=== PATIENT | male | born 1960 | race Caucasian/White ===

== ENCOUNTER → 2016-10-31 | Outpatient (CLI) | payer OTHER ==
--- NOTE | 2016-10-31 13:09 | DI ---
XR SHOULDER MIN 2VW,10/31/2016 11:26 AM: Clinical History: Left shoulder pain. Previous Exam: July 04, 2015 Findings: 4 views of the left shoulder are obtained, and demonstrate new postsurgical changes with metallic sut ure anchors seen within the greater tubercle. There is also a well-circumscribed lucency projecting o cl[place] the humeral head on one view. The adjacent left lung and chest wall are unremarkable. There are what appear to be some postsurgical changes of the left distal clavicle as well however, th is is not well evaluated due to non-visualization of the acromioclavicular joint on the prior exam. The adjacent left lung and chest wall are unremarkable. Impression: Postsurgical changes of the left proximal humerus otherwise unremarkable.
--- NOTE | 2016-10-31 13:11 | DI ---
XR SHOULDER MIN 2VW,10/31/2016 11:26 AM: Clinical History: Acute right shoulder pain Previous Exam: None at this facility. Findings: 4 views of the right shoulder are obtained, and demonstrate degenerative changes of the right acromio clavicular joint which are mild in degree. The adjacent right lung and chest wall are unremarkable. Surrounding soft tissues are also unremarkable. Impression: Mild degenerative changes of the right acromioclavicular joint otherwise unremarkable.
== END ==
LOC: ORTHO 11:42
PROVIDERS: ATTEND Orthopaedic Surgery
DX: M25.511 Pain in right shoulder (principal); M25.512 Pain in left shoulder; S51.012A Laceration without foreign body of left elbow, initial encounter; S20.222A Contusion of left back wall of thorax, initial encounter; F17.210 Nicotine dependence, cigarettes, uncomplicated; W00.2XXA Other fall from one level to another due to ice and snow, initial encounter; Y93.89 Activity, other specified; Y92.89 Other specified places as the place of occurrence of the external cause; Y99.0 Civilian activity done for income or pay
CPT/HCPCS: 73030

== ENCOUNTER → 2016-11-13 | Outpatient (CLI) | payer OTHER ==
--- NOTE | 2016-11-13 21:52 | DI ---
MRI RIGHT SHOULDER SCAN, 11/13/2016 9:54 AM: Clinical History: Right shoulder pain. Previous Exam: None at this facility. Technique: Axial, coronal, and sagittal fat saturated PD; axial gradient FE; coronal fat saturatedT2 weighted; sagittal T2 weighted. There is no soft tissue edema or joint effusion. Subchondral cystic changes are present in the literacy tutor olateral and superior aspect of the humeral head at the attachment of the infraspinatus tendon as wel l as near the greater tuberosity. Fluid is present in the subacromion and subdeltoid bursae. There is mild arthrosis of the AC joint and there is a type II acromion. There is a small articular surface p artial-thickness tear in the anterior aspect of the supraspinatus tendon near the attachment to the h umeral head. It measures 5 x 12 mm in transverse and AP dimensions. The remainder of the tendon exhib its severe tendinosis with marked thickening and intermediate signal intensity. Severe tendinosis is also present in the infraspinatus tendon and the subscapularis tendon and the tendon of the long head of the biceps muscle in the rotator interval. Fluid is present in the extra-articular portion of the tendon sheath of the long head of the biceps muscle indicating tenosynovitis. There is a type II SLA P tear that extends posteriorly almost to the equator as well as a small component extending anterior ly to the anterosuperior quadrant. The articular surfaces of the glenohumeral joint are intact. No mu scle atrophy is present. Readin. There is an articular surface partial thickness tear in the distal portion of the supraspinatus t endon anteriorly and this measures 5 x 12 mm in transverse and AP dimensions. The remaining portions of the supraspinatus tendon, the infraspinatus tendon, the subscapularis tendon, and the tendon of th e long head of the biceps muscle in the rotator interval exhibit severe tendinosis. There is tenosyno vitis involving the extra-articular portion of the biceps tendon. There is a type II SLAP tear that e xtends anteriorly into the anterosuperior quadrant and posteriorly almost to the equator. 2. Mild arthrosis is present in the AC joint and there is a type II acromion. The articular surfaces of the glenohumeral joint are intact.
== END ==
LOC: MRI 09:49
PROVIDERS: ATTEND Orthopaedic Surgery
DX: M25.511 Pain in right shoulder (principal); M75.101 Unspecified rotator cuff tear or rupture of right shoulder, not specified as traumatic; M65.811 Other synovitis and tenosynovitis, right shoulder; S43.431A Superior glenoid labrum lesion of right shoulder, initial encounter; M19.011 Primary osteoarthritis, right shoulder
CPT/HCPCS: 73221

== ENCOUNTER → 2016-12-02 | Outpatient (CLI) | payer OTHER ==
[2016-12-02 12:31] LABS: BLOOD UREA NITROGEN 18 mg/dL (7-22); CALCIUM 9.5 mg/dL (8.7-10.7); CHLORIDE 108 meq/L (98-112); CREATININE 0.8 mg/dL (0.70-1.50); EST GLOMERULAR FILTRATION > 60 (>60 ml/min/1.73m(2)); GLUCOSE 104 mg/dL (78-110); SODIUM 141 meq/L (135-145)
== END ==
LOC: EKG 11:50
PROVIDERS: ATTEND Orthopaedic Surgery
DX: Z01.812 Encounter for preprocedural laboratory examination (principal); M75.121 Complete rotator cuff tear or rupture of right shoulder, not specified as traumatic
CPT/HCPCS: 36415; 80048

== ENCOUNTER 2016-12-09 17:45 | Inpatient (IN) | payer SELFPAY ==
[2016-12-09] MEDS ORDERED: Sodium Chloride 0.9% 1,000 ML PRIMARY IV ONE (17:55)
[2016-12-09] MEDS ORDERED: MORPHINE SULFATE 4 MG/1 ML IVP ONE (17:55)
[2016-12-09] MEDS ORDERED: KETOROLAC 30 MG/1 ML VIAL IVP ONE (17:59)
--- NOTE | 2016-12-09 18:02 | PDOC ---
Abdomen/Flank HPI - General Chief Complaint: Abdomen Pain Stated Complaint: abd pain Date Seen by Provider: 12/09/16 Time Seen by Provider: 17:57 Source: POSITIVE: Patient Exam Limitations: POSITIVE: No limitations Nurse's Notes Reviewed & Considered: Yes - History of Present Illness Initial Comments: Patient comes in today with chief complaint of abdominal and scrotal pain. Patient was initially seen at the medical office building with abdominal pain. He was sent to the emergency room because of the lateness of the day and the need for further workup. Initial labs showed has no elevated white count to 16.22 hematocrit is 41.4 there are 1.34% monocytes present. Basic metabolic panel shows an CO2 of 21 normal creatinine. Urine is pending. Patient states his symptoms as scrotal pain and abdominal pain began on Thursday. Thursday he was unable to walk. Today he is able to walk with assistance and having increasing pain. He denies any fever or chills sweats, nausea or vomiting or diarrhea, no hematuria dysuria. Body Location Affected: REPORTS: Abdomen, Genitalia Timing: REPORTS: Constant, Getting Worse Duration: <1 week Severity: Severe Quality: REPORTS: "Pain", Sharpness, Stabbing, Throbbing Abdominal Pain Onset Location: REPORTS: Suprapubic Abdominal Pain Radiation: REPORTS: Groin Context: REPORTS: Activity, Bending, Coughing, Lifting Modifying Factors: improves with: Lying down, Remaining Still Associated Symptoms: REPORTS: Testicular Pain Similar Symptoms Previously: No Recent Care Received: REPORTS: Denies Any Prior Injuries Related to Current Complaint?: No - Patient Home Medications Home Medications: Home Medications Ibuprofen 1 tab PO TID #90 tab 01/11/16 - Patient Allergies Allergies/Adverse Reactions: Allergies Allergy/AdvReac Type Severity Reaction Status Date / Time No Known Allergies Allergy Verified 12/09/16 18:08 Past Medical History - heen HEENT History: Denies History Additional HEENT History: REAR CHIPPED TOOTH UPPER RIGHT. Pt has numerious chipped and missing teeth on L side. Cardiovascular History: Denies History Additional Cardiovasular History: EKG DONE ON 09/03/15. REVIEWED BY DR LEDESMA. NO FURTHER WORKUP NEEDED. SB Respiratory History: Denies History Gastrointestinal History: Other (please comment) Additional Gastrointestinal History: HAS HAD UNEXPLAINED 60 LB WT LOSS, CHANGE IN BOWEL HABITS, ABDOMINAL PAIN AND TROUBLE SWALLOWING. STATES DIAGNOSED WITH COLOITIS LAST ANTIBIOTICS AND STEROIDS IN MARCH, NO PROBLEMS SINCE THEN Genitourinary History: Denies History Endocrine History: Denies History Musculoskeletal History: Back Pain Prosthesis or Implant: No Neurological History: Denies History Blood Disorders: Denies History Psychiatric History: Anxiety Disorders History of Sexually Transmitted Diseases: No Cancer History: Denies History History of MDRO: No History of Other Communicable Diseases: No Alcohol Use: Rarely Substance Use Type: Marijuana Previous Surgical History: Yes Type / Date of Surgery: BACK SX L5 LASER DISCOSCOPY 1992/LEFT KNEE SURGERY 1977 Anesthesia Reactions: No Malignant Hyperthermia: No Significant Family History: Cancer ROS - Limitations ROS Limitations: No Limitations Constitution: REPORTS: Denies Symptoms Cardiovascular: REPORTS: Denies Cardiac Symptoms Respiratory: REPORTS: Denies Resp Symptoms Neurological: REPORTS: Denies Neuro Symptoms Gastrointestinal: REPORTS: Abdominal Pain Endocrine: REPORTS: Denies Symptoms Musculoskeletal: REPORTS: Denies MS Symptoms Genitourinary: REPORTS: Other (Scrotal pain) Eyes: REPORTS: Denies Symptoms ENT: REPORTS: Denies Symptoms Skin: REPORTS: Denies Skin Symptoms Lympathic: REPORTS: Denies Lympathic Symptoms Immunologic: POSITIVE: Denies Symptoms Psychiatric: POSITIVE: Denies Psych Symptoms Abdominal/Flank Pain PE - General Appearance General Appearance: POSITIVE: Alert, Cooperative, Anxious, Moderate Distress - HEENT HEENT: POSITIVE: Head Inspection Nml, Eyes Inspection Nml, Ears Inspection Nml, Nose Inspection Nml, PERRL, EOMI - Neck Neck: POSITIVE: Normal Inspection, No Apparent Injury - Respiratory Respiratory: POSITIVE: No Respiratory Distress, Breath Sounds Normal, Chest Non- Tender - Cardiovascular Cardiovascular: POSITIVE: Regular Rate and Rhythm, Heart Sounds Normal - Chest Chest: POSITIVE: Non Tender - Abdomen Abdomen: Soft: (All Quadrants), Normal Bowel Sounds: (All Quadrants), Tenderness Noted: (RLQ), (LLQ) - Genital / Rectal Male Genital: POSITIVE: Testicular Tenderness, Inguinal Tenderness - Back Back: POSITIVE: Normal Inspection - Skin Skin: POSITIVE: Intact, Normal For Race, Warm, Dry, No Rash - Extremities Extremity: Non-Tender: (All Extremities), Normal ROM: (All Extremities), Normal Inspection: (All Extremities) - Neurological Neurological: POSITIVE: Affect Apporpriate, Oriented X3 - Psychological Psychiatric: POSITIVE: Affect Appropriate, Mood Appropriate Abdomen Progress - Results Reviewed by me Xrays/CTs/US Reviewed by me: Yes Discussed with Radiologist: Yes Lab Results Reviewed: Yes Lab Results:: Laboratory Results 12/09/16 12/09/16 Range/Units 18:06 18:09 VBG pH 7.51 H (7.32-7.42) VBG pCO2 26 L (45-55) mmHg VBG HCO3 20 L (22-26) mmol/L VBG Base Excess -3 L (-2-2) MMOL/L Lactic Acid 1.0 (0.70-2.10) MMOL/L - Patient's Progress Pain Medication Addressed: POSITIVE: Yes Re-examine Time: 20:13 Status: POSITIVE: Improved MDM / ED Course: Patient was examined, IV started, blood drawn and sent to the lab for studies, radiographic examinations obtained. Patient received IV Toradol, morphine, Zofran, a liter of normal saline. Symptoms did improve somewhat continued to be in pain. Findings: White count was elevated to greater than 16. CT scan shows slight thickening of the colon wall suggestive of colitis. Assessment: Colitis Plan: Admission, IV antibiotics, pain medication. - Consult Consult (If Yes, Name of Consulting MD & Time Called): Yes (Dr Tolbert) Consulting MD will see pt:: POSITIVE[place] [facility] [place] Counseled: POSITIVE: Patient, RE: Lab Results, RE: Radiology Results, RE: DX Patient Care Time - Estimated PCT Patient Care Time (In Minutes): 30 Vital Signs - Recent Vital Signs Vital Signs: Vital Signs (Last 8 hours) Temp Pulse Resp BP Pulse Ox 12/09/16 17:47 100.8 F H 64 18 155/94 97 - VS Reviewed Vital Signs Reviewed: Yes Discharge Clinical Impression: Non-specific colitis Discharge Disposition: Admit to Observation Condition: Stable Patient Instructions Given at Discharge: Acute Abdominal Pain (ED) Date Decision to Admit to Inpatient: 12/09/16 Time Decision to Admit to Inpatient: 20:16
--- NOTE | 2016-12-09 19:00 | DI ---
CT ABD W/CN AND PELVIS W/CN,12/09/2016 5:55 PM: Clinical History: Abdominal and scrotal pain Previous Exam: July 04, 2015 Findings: Multiple helically acquired CT images are obtained through the abdomen and pelvis following the intra venous administration of 75 cc of Isovue 300, and demonstrate clear lung bases. The liver, gallbladder, adrenals, kidneys, spleen and pancreas are unremarkable. There is no mesenter ic lymphadenopathy. The appendix is normal. Urinary bladder is unremarkable. There are few colonic diverticula without evidence of acute diverticulitis. The stomach is unremarkable. The lung bases are clear there is some mild subsegmental atelectasis. There is some mild thickening of the sigmoid colon. Impression: Mild thickening of the sigmoid colon not well evaluated on this exam. Correlate with most recent colo noscopy. No acute intra-abdominal pathology.
--- NOTE | 2016-12-09 19:41 | DI ---
US SCROTUM,12/09/2016 5:55 PM: Clinical History: Scrotal pain Previous Exam: None at this facility. Findings: Multiple grayscale and color Doppler sonographic images are obtained through the scrotum demonstratin g a normal-appearing right testicle measuring 5.7 x 2.7 x 3.4 cm. The left testicle measures 5.0 x 2. 6 x 3.5 cm with a normal sonographic appearance. The epididymis is within normal limits. There is normal Doppler arterial and venous waveforms identified. There was an epididymal head cyst noted within the right testicle as well as a smaller epididymal hea d cyst on the left. Impression: 1. No intratesticular mass. 2. No evidence of torsion.
[2016-12-09] MEDS ORDERED: Ciprofloxacin 400mg (Premix) 400 MG in Dextrose 1 BAG IV ONE (20:10)
[2016-12-09] MEDS ORDERED: metroNIDAZOLE 500mg (Premix) 500 MG in Premix 1 BAG IV ONE (20:10)
--- NOTE | 2016-12-09 20:24 | PDOC ---
History and Physical - History of Present Illness History of Present Illness: This is a very nice 56-year-old gentleman with complicated history over the last few years this this started to have some lower abdominal pain he felt more like in his inner thigh when went around the scrotum and down the other side of the leg he almost felt like there was a steak stuck in him he did have a colonoscopy in the past as well. He also had a 70 pound weight loss unintentional and that nobody could figure out why he was losing weight he did gain some of it back around 20 pounds. He sold his primary care multiple times and the last time he saw him he was given some prednisone and this pain improved over a year and a half he felt great until this started again on Thursday and because he has shoulder surgery scheduled he also had a cold that wouldn't go away he decided to go see the doctor again today and he was sent to the ER where CT scan revealed some atypical colitis. With a white count of 16, 000 he was started on Cipro and Flagyl. At this point differential is vast Ivanoff he has cauda equina syndrome he does have sensation in his buttocks and all in the back of his legs will order an MRI. Of his lower back. Also because of his unintentional weight loss she's never had a CT scan of his chest we will order that as well. I will also give him a dose of Solu-Medrol and see how he feels with this tomorrow. At one point in time while he had this pain somebody offered him a couple coffee which made his symptoms are much better this is also unexplainable Past Medical History Medical History: Varicella. Diverticulitis. Colitis Surgical History: Back surgery Tobacco Use: Never Smoker Substance Use Type: Marijuana Medication / Allergies Home Medications: Home Medications Medication Instructions Recorded Confirmed Type Ibuprofen 1 tab PO TID #90 tab 01/11/16 12/09/16 Clinic Allergies/Adverse Reactions: Allergies Allergy/AdvReac Type Severity Reaction Status Date / Time No Known Allergies Allergy Verified 12/09/16 21:12 Review of Systems - Review of Systems All Systems: Reviewed & No Additional Complaints Except as Stated - Respiratory Respiratory: REPORTS: Cough - Cardiovascular Cardiovascular: DENIES: Negative System Review, Chest Pain, Edema, Syncope, Palpitations, Orthopnea, Paroxysmal Nocturnal Dyspnea, Other, See HPI - Gastrointestinal Gastrointestinal / Abdominal: REPORTS: Abdominal Pain - Genitourinary Genitourinary: DENIES: Negative System Review, Pain, Burning, Hematuria, Incontinence, Urgency, Hesitant Stream, Decreased Stream, Nocutria, Discharge, Sexual Dyfunction, Other, See HPI - Neurological Neurologic: DENIES: Negative System Review, Headache, Numbness/Paresthesia, Tremors, Weakness, Seizures, Head Trauma, LOC, Dizziness, Confusion, Memory Loss , Difficulty Walking, Incoordination, Other, See HPI Exam - Vitals Vital Signs: Vital Signs Temperature 100.8 F Temperature Source Temporal Artery Scan Pulse Rate [Pulse Oximeter] 64 Respiratory Rate 18 Blood Pressure [Left Arm] 155/94 Pulse Ox 97 Oxygen Delivery Method Room Air Height 5 ft 11 in Weight 83.915 kg - General General Appearance: POSITIVE: No Acute Distress, Cooperative - Head Head Exam: POSITIVE: Normal Inspection - Neck Neck Exam: POSITIVE: Normal Inspection - Respiratory Respiratory Exam: POSITIVE: Clear to Auscultation - Bilaterally, Breathing Non Labored, Normal To Percussion - Cardiovascular Cardiovascular Exam: POSITIVE: RRR, No Murmur, No Clicks, No Gallops - GI/Abdominal GI/Abdominal Exam: POSITIVE: Normal Bowel Sounds, Non Distended, Soft. NEGATIVE : Guarding, No Masses, Rebound, Rigid, No Organomegaly - Extremities Extremities Exam: POSITIVE: No Clubbing Present, No Edema Present, No Cyanosis Present - Neurological Neurological Exam: POSITIVE: Alert, Oriented x 3, CN II-XII Intact, No Facial Droop, Speech Intact / Clear - Psychiatric Psychiatric Exam: POSITIVE: Normal Affect, Normal Mood Results - Labs Labs - Last 24 Hours: Laboratory Results 12/09/16 12/09/16 Range/Units 18:06 18:09 VBG pH 7.51 H (7.32-7.42) VBG pCO2 26 L (45-55) mmHg VBG HCO3 20 L (22-26) mmol/L VBG Base Excess -3 L (-2-2) MMOL/L Lactic Acid 1.0 (0.70-2.10) MMOL/L Assessment and Plan - Patient Problems (1) Colitis Current Visit: Yes Status: Acute Comment: IV Flagyl and Cipro colitis seen on CT scan elevated white count. Differential diagnosis could be also colitis Crohn's or initial stages considering things improved with steroids a year ago could have some nerve damage that's where he has this feeling of a stick in his lower abdomen and underneath his scrotum ultrasound revealed negative disease. At this point we need to also see get a CT of his chest because of his 80 pound weight loss. Also will get an MRI of his lower back make sure there is any compression of any nerve endings I will also give him 1 dose of steroids and we'll see how he feels tomorrow morning to discuss all this with the patient and he agrees with this plan (2) Cough Current Visit: Yes Status: Acute Comment: Patient will be on IV Cipro and Flagyl to cover upper respiratory symptoms
[2016-12-09] MEDS ORDERED: Ciprofloxacin 400mg (Premix) 400 MG in Dextrose 1 BAG IV SCH (20:30)
[2016-12-09] MEDS ORDERED: metroNIDAZOLE 500mg (Premix) 500 MG in Premix 1 BAG IV SCH (20:30)
[2016-12-09] MEDS ORDERED: NORMAL SALINE 10 ML SYRINGE FLUSH IVP PRN (20:59)
[2016-12-09] MEDS ORDERED: HYDROmorphone 2 MG/1 ML IVP PRN (20:59)
[2016-12-09] MEDS ORDERED: ONDANSETRON 4 MG/2 ML VIAL IVP PRN (20:59)
[2016-12-09] MEDS: 1/2NS + 20mEq KCL 1,000 ML PRIMARY IV SCH (21:54)
[2016-12-09] MEDS: HEPARIN 5000 UNIT/1 ML SUBCUT SCH (21:54)
[2016-12-09] MEDS ORDERED: methylPREDNISolone 125 MG/2 ML VIAL IVP ONE (22:02)
[2016-12-10] MEDS: metroNIDAZOLE 500mg (Premix) 500 MG in Premix 1 BAG IV SCH ×3 (04:50→19:59)
[2016-12-10] MEDS: HEPARIN 5000 UNIT/1 ML SUBCUT SCH ×3 (04:50→19:58)
[2016-12-10 06:23] LABS: BASOPHILS # (AUTO) 0.01 10*3/UL; BASOPHILS % (AUTO) 0.1 % (0-1); EOSINOPHILS % (AUTO) 0 % (0-8); HEMATOCRIT 40.2 % (42.0-52.0); HEMOGLOBIN 13.9 g/dL (14.0-18.0); IMM GRAN % (AUTO) 0.2 % (0-5); IMM GRAN# (AUTO) 0.02 10*3/UL; LYMPHOCYTES # (AUTO) 1.13 10*3/uL; LYMPHOCYTES % (AUTO) 11.2 % (10-50); MEAN CORPUSCULAR HEMOGLOBIN 30.7 PG (27-31); MEAN CORPUSCULAR HGB CONC 34.6 g/dL (33-37); MEAN PLATELET VOLUME 10.1 FL (7.4-12.2); MONOCYTES # (AUTO) 0.05 10*3/UL (0.3-0.8); MONOCYTES % (AUTO) 0.5 % (5-15); NEUTROPHILS # (AUTO) 8.84 10*3/UL; RDW COEFFICIENT OF VARIATION 14.1 % (11.5-14.5); RED BLOOD COUNT 4.53 10^6/uL (4.70-6.10); WHITE BLOOD COUNT 10.05 10^3/uL (4.8-10.8)
[2016-12-10] MEDS: 1/2NS + 20mEq KCL 1,000 ML PRIMARY IV SCH ×2 (06:30→13:07)
[2016-12-10 06:31] LABS: PLATELET MORPHOLOGY COMMENT NORMAL MORPHOLOGY (NORM)
[2016-12-10 06:38] LABS: AMYLASE 75 U/L (30-110); ASPARTATE AMINO TRANSFERASE 20 IU/L (21-57); BILIRUBIN,TOTAL 0.7 mg/dL (0.3-1.2); BLOOD UREA NITROGEN 17 mg/dL (7-22); BUN/CREATININE RATIO 28.33 (6-20); CALCIUM 9.5 mg/dL (8.7-10.7); CHLORIDE 110 meq/L (98-112); CREATININE 0.6 mg/dL (0.70-1.50); EST GLOMERULAR FILTRATION > 60 (>60 ml/min/1.73m(2)); GLUCOSE 157 mg/dL (78-110); POTASSIUM 4.2 meq/L (3.8-5.2); SODIUM 140 meq/L (135-145); TOTAL PROTEIN 7.4 g/dL (6.1-8.0)
[2016-12-10] MEDS: Ciprofloxacin 400mg (Premix) 400 MG in Dextrose 1 BAG IV SCH ×2 (09:07→19:59)
--- NOTE | 2016-12-10 09:14 | DI ---
MRI LUMBAR SPINE W/O CN,12/10/2016 7:18 AM: Clinical History: Pain in legs Previous Exam: None at this facility. Findings: Multiplanar MR images are obtained through the lumbar spine without contrast, and demonstrate diffuse heterogeneity of the lumbar spine. There are no fractures identified. Vertebral body height is prese rved. There is isolated areas of increased T2 signal involving the endplates of L5 the inferior endpl ate of L4 and a Schmorl's node at L2 inferiorly. There are no fractures are identified. The spinal cord descends normally with a normal conus at the L1 level. A nonobstructive bowel gas pattern is seen. There is no evidence of renal lesion. Individual intervertebral disc spaces: L1/2: There is a small broad-based disc bulge at this level and some mild facet and ligamentum flavum hypertrophy contributing to mild bilateral neural foraminal narrowing. L2/3: There is disc desiccation, a 3 mm broad-based disc bulge and some annular fissuring combining w ith facet and ligamentum flavum hypertrophy to cause mild bilateral neural foraminal narrowing. L3/4: There is disc desiccation, annular fissuring and a small broad-based disc bulge combining with facet and ligamentum flavum hypertrophy contributing to moderate bilateral lateral recess stenosis. L4/5: There is disc desiccation, annular fissuring and a broad-based disc bulge combining with facet and ligamentum flavum hypertrophy to cause mild to moderate bilateral lateral recess stenosis. L5/S1: There is disc desiccation, annular fissuring and a small broad-based disc bulge with facet and ligamentum flavum hypertrophy causing moderate to severe left and mild right neuroforaminal narrowin g. Impression: L1/2: There is a small broad-based disc bulge at this level and some mild facet and ligamentum flavum hypertrophy contributing to mild bilateral neural foraminal narrowing. L2/3: There is disc desiccation, a 3 mm broad-based disc bulge and some annular fissuring combining w ith facet and ligamentum flavum hypertrophy to cause mild bilateral neural foraminal narrowing. L3/4: There is disc desiccation, annular fissuring and a small broad-based disc bulge combining with facet and ligamentum flavum hypertrophy contributing to moderate bilateral lateral recess stenosis. L4/5: There is disc desiccation, annular fissuring and a broad-based disc bulge combining with facet and ligamentum flavum hypertrophy to cause mild to moderate bilateral lateral recess stenosis. L5/S1: There is disc desiccation, annular fissuring and a small broad-based disc bulge with facet and ligamentum flavum hypertrophy causing moderate to severe left and mild right neuroforaminal narrowin g. Diffuse heterogeneous signal throughout the bones most consistent with diffuse osteopenia. Correlate clinically as an infiltrative process also cannot be excluded.
--- NOTE | 2016-12-10 09:31 | DI ---
CT CHEST W/CONTRAST,12/10/2016 7:00 AM: Clinical History: 80 pound weight loss and cough. Previous Exam: None at this facility. Findings: Multiple helically acquired CT images are obtained through the chest following the intravenous admini stration of contrast, and demonstrate mild subsegmental atelectasis in the right lung base. The upper abdomen is unremarkable. The aorta is normal. The thyroid is normal. The pulmonary arteries are normal without filling defect nor effusion. Coronary artery calcifications are seen. There is no evidence of mediastinal lymphadenopathy. Degenerative changes of the thoracic spine are seen. There is a subcarinal lymph node which is nonpat hologic by size criteria measuring 14 mm in short axis. Impression: 1. No evidence of pulmonary embolism. 2. No evidence of pulmonary mass.
--- NOTE | 2016-12-10 11:31 | PDOC(PROG) ---
Date and Time of Service: 12/10/2016 11:29 AM Interval History: Subjective Patient feels much better than when he came in. He said he had some abdominal pain mainly in the lower part and just didn't feel while he had some low-grade temperature yesterday, but he wasn't feeling well for 2-3 days. He did have loose stool yesterday. Today's much better. He said he did have a history of colitis before, had it twice and at one point he was giving prednisone and that' s resolved his symptoms. In addition to the lower abdominal pain he's pointing to the scrotum and inner thighs and he had pain but he said he had at that on and off for a while but overall he is doing much better. He did have what he described as cold symptoms since September with cough and phlegm production. Had a history of also low back pain for which he had surgery before. Objective : Data - Labs CBC and BMP: 12/10/16 06:16 12/10/16 06:16 Labs - Last 24 Hours: Laboratory Results 12/10/16 Range/Units 06:16 WBC 10.05 (4.8-10.8) 10^3/uL RBC 4.53 L (4.70-6.10) 10^6/uL Hgb 13.9 L (14.0-18.0) g/dL Hct 40.2 L (42.0-52.0) % MCV 88.7 (80-90) FL MCH 30.7 (27-31) PG MCHC 34.6 (33-37) g/dL RDW Std Deviation 45.0 (39-50) fL RDW Coeff of Alec 14.1 (11.5-14.5) % Plt Count 265 (140-350) 10*3/uL MPV 10.1 (7.4-12.2) FL Immature Gran % (Auto) 0.2 (0-5) % Neut % (Auto) 88.0 H (50-80) % Lymph % (Auto) 11.2 (10-50) % [place]key % (Auto) 0.5 L (5-15) % Eos % (Auto) 0 (0-8) % Baso % (Auto) 0.1 (0-1) % Immature Gran # (Auto) 0.02 10*3/UL Neut # (Auto) 8.84 10*3/UL Lymph # (Auto) 1.13 10*3/uL Sharkey # (Auto) 0.05 L (0.3-0.8) 10*3/UL Eos # (Auto) 0 10*3/UL Baso # (Auto) 0.01 10*3/UL WBC Morphology Comment Normal morphology (NORM) Plt Morphology Comment Normal morphology (NORM) RBC Morph Comment Normal morphology (NORM) Sodium 140 (135-145) meq/L Potassium 4.2 (3.8-5.2) meq/L Chloride 110 (98-112) meq/L Carbon Dioxide 18 L (23-33) meq/L Anion Gap 12 (5-20) BUN 17 (7-22) mg/dL Creatinine 0.6 L (0.70-1.50) mg/dL Estimated GFR > 60 (>60 ml/min/1.73m(2)) BUN/Creatinine Ratio 28.33 H (6-20) Glucose 157 H (78-110) mg/dL Calculated Osmolality 294.0 H (267-292) mOsm/kg Calcium 9.5 (8.7-10.7) mg/dL Total Bilirubin 0.7 (0.3-1.2) mg/dL AST 20 L (21-57) IU/L ALT 38 (21-72) IU/L Alkaline Phosphatase 148 H (38-126) IU/L Total Protein 7.4 (6.1-8.0) g/dL Albumin 4.3 (3.5-4.8) g/dL Globulin 3.1 (2.50-4.10) g/dL Albumin/Globulin Ratio 1.30 (1.3-2.0) mg/g Amylase 75 (30-110) U/L Lipase 107 (23-300) IU/L Objective : Exam - General General Appearance: No Acute Distress, Cooperative - Head Head Exam: Normal Inspection - Eye Eye Exam: Normal Appearance - ENT ENT Exam: Normal Exam - Neck Neck Exam: Normal Inspection - Respiratory Respiratory Exam: Clear to Auscultation - Bilaterally - Cardiovascular Cardiovascular Exam: RRR - GI/Abdominal GI/Abdominal Exam: Normal Bowel Sounds, Non Tender, Non Distended, Soft - Rectal Rectal Exam: Deferred Assessment and Plan - Patient Problems (1) Colitis Current Visit: Yes Status: Acute Comment: Had previous history of colitis before and this time his symptoms were vague but he did report abdominal pain and some loose stools so we'll treat him with the same medications with antibiotics and hold the steroid, we'll see how he feels tomorrow if things remain stable may be able to discharge him home. He supposed to have surgery next week on his right shoulder we'll double check with Dr. Everett and let him know that he was here in the hospital. I did tell him that he probably need to have a repeat colonoscopy as an outpatient .
[2016-12-11] MEDS: 1/2NS + 20mEq KCL 1,000 ML PRIMARY IV SCH (00:17)
[2016-12-11] MEDS: HEPARIN 5000 UNIT/1 ML SUBCUT SCH (04:21)
[2016-12-11] MEDS: metroNIDAZOLE 500mg (Premix) 500 MG in Premix 1 BAG IV SCH (04:21)
[2016-12-11 08:17] VITALS: RESP 16; TEMP 97.6
--- NOTE | 2016-12-11 08:29 | PDOC(PROG) ---
Date and Time of Service: 12/11/2016 8:26 AM Interval History: Subjective Patient feels much better, diarrhea also improved, tolerating diet. He said he did walk around yesterday did okay. Pain that he had in the scrotal area and the inner thighs much improved. Did not get any pain medications since is been here. He said he was having pain when he squeezes his buttocks and that's resolved Objective : Data - Labs CBC and BMP: 12/10/16 06:16 12/10/16 06:16 Objective : Exam - General General Appearance: No Acute Distress, Cooperative - Head Head Exam: Normal Inspection - Eye Eye Exam: Normal Appearance - ENT ENT Exam: Normal Exam - Neck Neck Exam: Normal Inspection - Respiratory Respiratory Exam: Clear to Auscultation - Bilaterally - Cardiovascular Cardiovascular Exam: RRR - GI/Abdominal GI/Abdominal Exam: Normal Bowel Sounds, Non Tender, Non Distended, Soft - Rectal Rectal Exam: Deferred - External Exam: Deferred - Extremities Extremities Exam: Normal Inspection - Back Back Exam: Normal Inspection - Neurological Neurological Exam: Alert, Oriented x 3, CN II-XII Intact, Moves All Extremities Equally - Psychiatric Psychiatric Exam: Normal Affect - Integumentary Integumentary Exam: Normal Color Assessment and Plan - Patient Problems (1) Colitis Current Visit: Yes Status: Acute Comment: This has been treated as colitis, his symptoms were atypical, he had pain in the scrotum and inner thigh and that's resolved. Some loose stools last night and that's improved. I think we can send him home on antibiotics. Finish the course. I did tell him that he need to have a colonoscopy done. He supposed to have surgery next week for his shoulder but I spoke with Dr. Everett and the plan is to postpone it. The patient knows about that.
--- NOTE | 2016-12-11 08:36 | DCSUMMARY ---
Hospitalization Summary Admit Date: 12/09/16 Discharge Date: 12/11/16 Hospital Course: Discharge diagnoses 1. Thickening of the sigmoid colon treated as possible colitis 2. Degenerative joint disease 3. Moderate severe left and mild right neuroforaminal narrowing at L5-S1. 4. Diffuse heterogenous signal throughout the bone most consistent with diffuse osteopenia, an infiltrative process cannot be ruled out Hospital course This is a 56 years old male with previous history of colitis before who came into the hospital because of pain in the scrotum and the inner side of both legs being going on for 2 or 3 days. There was also some lower abdominal pain. He was sent to the ER from the urgent clinic as his white count was elevated at 16,000. A CT of the abdomen showed some mild thickening of the sigmoid colon because of that he was admitted. He did give a history of previous attacks of abdominal pain at that time he had more diarrhea and and vomiting and was treated as colitis twice before. it sounded like he was treated with antibiotics. However he gave a history of also of pain in the scrotum and inner thighs on and off for a period of time at one point he was giving prednisone and he didn't have any symptoms until this time. He was admitted to the hospital by Dr. Tolbert please see his note he was given a dose of steroid and also was put on antibiotics. I saw him the next day he was already feeling much better. He didn't receive any pain medication. His exam was not much remarkable. He did get up and walk around and tolerated diet did have any issues. I saw him the day of discharge also he was still doing better exam was not remarkable we thought he could be discharged home. He said he had one episode of loose stool when he cam,e in and that improved. We thought he could be discharged home finish the course of antibiotics and he need to have another colonoscopy done. His symptoms were very atypical and was more pain rather than diarrhea and more inner thigh and scrotum. He did have an MRI done which showed degenerative joint disease in addition moderate severe left and mild right neuroforaminal narrowing at L5-S1. There is a diffuse heterogenous signal throughout the bone most consistent with diffuse osteopenia and infiltrative process cannot be ruled out, I did suggest that probably need to have a bone density scan because of this finding on the MRI and can be followed up with his primary. US scrotum was negative. I did tell him that he need to have a colonoscopy done and he'll follow-up he said with Dr. Alicea. Laboratory Results 12/09/16 12/09/16 12/10/16 Range/Units 18:06 18:09 06:16 WBC 10.05 (4.8-10.8) 10^3/uL RBC 4.53 L (4.70-6.10) 10^6/uL Hgb 13.9 L (14.0-18.0) g/dL Hct 40.2 L (42.0-52.0) % MCV 88.7 (80-90) FL MCH 30.7 (27-31) PG MCHC 34.6 (33-37) g/dL RDW Std Deviation 45.0 (39-50) fL RDW Coeff of Alec 14.1 (11.5-14.5) % Plt Count 265 (140-350) 10*3/uL MPV 10.1 (7.4-12.2) FL Immature Gran % (Auto) 0.2 (0-5) % Neut % (Auto) 88.0 H (50-80) % Lymph % (Auto) 11.2 (10-50) % [place] % (Auto) 0.5 L (5-15) % Eos % (Auto) 0 (0-8) % Baso % (Auto) 0.1 (0-1) % Immature Gran # (Auto) 0.02 10*3/UL Neut # (Auto) 8.84 10*3/UL Lymph # (Auto) 1.13 10*3/uL [place] # (Auto) 0.05 L (0.3-0.8) 10*3/UL Eos # (Auto) 0 10*3/UL Baso # (Auto) 0.01 10*3/UL WBC Morphology Comment Normal morphology (NORM) Plt Morphology Comment Normal morphology (NORM) RBC Morph Comment Normal morphology (NORM) VBG pH 7.51 H (7.32-7.42) VBG pCO2 26 L (45-55) mmHg VBG HCO3 20 L (22-26) mmol/L VBG Base Excess -3 L (-2-2) MMOL/L Sodium 140 (135-145) meq/L Potassium 4.2 (3.8-5.2) meq/L Chloride 110 (98-112) meq/L Carbon Dioxide 18 L (23-33) meq/L Anion Gap 12 (5-20) BUN 17 (7-22) mg/dL Creatinine 0.6 L (0.70-1.50) mg/dL Estimated GFR > 60 (>60 ml/min/1.73m(2)) BUN/Creatinine Ratio 28.33 H (6-20) Glucose 157 H (78-110) mg/dL Calculated Osmolality 294.0 H (267-292) mOsm/kg Lactic Acid 1.0 (0.70-2.10) MMOL/L Calcium 9.5 (8.7-10.7) mg/dL Total Bilirubin 0.7 (0.3-1.2) mg/dL AST 20 L (21-57) IU/L ALT 38 (21-72) IU/L Alkaline Phosphatase 148 H (38-126) IU/L Total Protein 7.4 (6.1-8.0) g/dL Albumin 4.3 (3.5-4.8) g/dL Globulin 3.1 (2.50-4.10) g/dL Albumin/Globulin Ratio 1.30 (1.3-2.0) mg/g Amylase 75 (30-110) U/L Lipase 107 (23-300) IU/L Discharge instruction Diet regular Activity as started Medications Home Medications Medication Instructions Recorded Confirmed Type Ibuprofen 1 tab PO TID #90 tab 01/11/16 12/09/16 Clinic Ciprofloxacin HCl [Cipro HCl] 250 mg PO Q12H #10 tab 12/11/16 Rx metroNIDAZOLE Tab [Flagyl Tab] 500 mg PO TID #15 tab 12/11/16 Rx Follow-up with his PCP in 1-2 weeks Condition at discharge was stable for discharge Exam - Vitals Vital Signs: Vital Signs Temperature 97.6 F Temperature Source Temporal Artery Scan Pulse Rate [Pulse Oximeter] 53 Pulse Rate 54 Respiratory Rate 16 Blood Pressure [Left Arm] 140/75 Blood Pressure 120/80 Pulse Ox 97 Oxygen Delivery Method Room Air Height 5 ft 11 in Weight 180 lb 12.8 oz Patient Problems - Patient Problem List (1) Colitis Status: Acute
[2016-12-11] MEDS: Ciprofloxacin 400mg (Premix) 400 MG in Dextrose 1 BAG IV SCH (09:12)
== END 2016-12-11 11:08 | disposition home or self-care (01) | DRG 392 ==
LOC: ER 17:45 → MED/SURG 20:16
PROVIDERS: ADMIT Internal Medicine; ATTEND Internal Medicine
DX: K52.9 Noninfective gastroenteritis and colitis, unspecified (principal); M19.90 Unspecified osteoarthritis, unspecified site; R05 Cough; N50.82 Scrotal pain
CPT/HCPCS: 36415; 71260; 72148; 74177; 76870; 80053; 82150; 82803; 83605; 83690; 85025; 87040; 94761; 96365; 96368; 96375; 99284; J0744; J1644; J1885; J3490; J7030

== ENCOUNTER → 2016-12-09 | Outpatient (CLI) | payer SELFPAY ==
[2016-12-09 17:01] LABS: BASOPHILS # (AUTO) 0.08 10*3/UL; BASOPHILS % (AUTO) 0.5 % (0-1); EOSINOPHILS % (AUTO) 0.9 % (0-8); HEMATOCRIT 41.4 % (42.0-52.0); HEMOGLOBIN 14.5 g/dL (14.0-18.0); IMM GRAN % (AUTO) 0.3 % (0-5); IMM GRAN# (AUTO) 0.05 10*3/UL; LYMPHOCYTES % (AUTO) 17.9 % (10-50); MEAN CORPUSCULAR HEMOGLOBIN 31.4 PG (27-31); MEAN PLATELET VOLUME 10.4 FL (7.4-12.2); MONOCYTES # (AUTO) 1.34 10*3/UL (0.3-0.8); MONOCYTES % (AUTO) 8.3 % (5-15); NEUTROPHILS % (AUTO) 72.1 % (50-80); RDW COEFFICIENT OF VARIATION 14.3 % (11.5-14.5); RED BLOOD COUNT 4.62 10^6/uL (4.70-6.10); WHITE BLOOD COUNT 16.22 10^3/uL (4.8-10.8)
[2016-12-09 17:02] LABS: PLATELET MORPHOLOGY COMMENT NORMAL MORPHOLOGY (NORM)
[2016-12-09 17:05] LABS: BLOOD UREA NITROGEN 22 mg/dL (7-22); BUN/CREATININE RATIO 24.44 (6-20); CALCIUM 10.2 mg/dL (8.7-10.7); CHLORIDE 105 meq/L (98-112); CREATININE 0.9 mg/dL (0.70-1.50); EST GLOMERULAR FILTRATION > 60 (>60 ml/min/1.73m(2)); GLUCOSE 94 mg/dL (78-110); POTASSIUM 4.1 meq/L (3.8-5.2); SODIUM 141 meq/L (135-145)
== END ==
LOC: MOB LAB 16:10
DX: J06.9 Acute upper respiratory infection, unspecified (principal); R10.84 Generalized abdominal pain; R05 Cough; F17.210 Nicotine dependence, cigarettes, uncomplicated
CPT/HCPCS: 36415; 80048; 85025; 87088

== ENCOUNTER → 2017-01-09 | Outpatient (CLI) | payer OTHER ==
[2017-01-09 08:42] LABS: HEMATOCRIT 39.4 % (42.0-52.0); HEMOGLOBIN 13.9 g/dL (14.0-18.0); MEAN CORPUSCULAR HEMOGLOBIN 30.8 PG (27-31); MEAN CORPUSCULAR HGB CONC 35.3 g/dL (33-37); MEAN PLATELET VOLUME 9.5 FL (7.4-12.2); RED BLOOD COUNT 4.51 10^6/uL (4.70-6.10)
[2017-01-09 08:56] LABS: BLOOD UREA NITROGEN 20 mg/dL (7-22); BUN/CREATININE RATIO 33.33 (6-20); CALCIUM 9.9 mg/dL (8.7-10.7); EST GLOMERULAR FILTRATION > 60 (>60 ml/min/1.73m(2)); SERUM ALBUMIN 4.7 g/dL (3.5-4.8)
[2017-01-09 08:58] LABS: BILIRUBIN,URINE NEGATIVE (NEG); CLARITY,URINE CLEAR (CLEAR); COLOR,URINE YELLOW; GLUCOSE, URINE (UA) NEGATIVE (NEG); NITRATE,URINE NEGATIVE (NEG); OCCULT BLOOD,URINE NEGATIVE (NEG); PH,URINE 5.5 (5.0-8.5); PROTEIN,URINE NEGATIVE (NEG); UROBILINOGEN,URINE 0.2 mg/dL (0.2)
[2017-01-09 08:59] LABS: URINE SAMPLE TYPE VOIDED SPECIMEN
[2017-01-09 09:05] LABS: RBC,URINE 0 /hpf; URINE SPECIFIC GRAVITY - MAN 1.024; WBC,URINE 0
== END ==
LOC: LAB 08:22
PROVIDERS: ATTEND Orthopaedic Surgery
DX: Z01.812 Encounter for preprocedural laboratory examination (principal); S43.431A Superior glenoid labrum lesion of right shoulder, initial encounter; K52.9 Noninfective gastroenteritis and colitis, unspecified
CPT/HCPCS: 36415; 80053; 81001; 85027

== ENCOUNTER 2017-01-27 10:26 | Day surgery (SDC) | payer OTHER ==
[~2017-01-27 10:26] MED LIST: EPINEPHrine Inj (1:1,000) 30mg/30ml vial ONE; LIDOCAINE W/ SODIUM BICARB 0.5 ML SYR ONE; Lactated Ringers 1,000 ML PRIMARY IV ONE; Ropivacaine 0.2% VIAL 20 ML ONE; ceFAZolin Inj 2gm (Premix) 50 ML IV ONE
[2017-01-27 11:28] LABS: BLOOD UREA NITROGEN 19 mg/dL (7-22); BUN/CREATININE RATIO 27.14 (6-20); CALCIUM 9.6 mg/dL (8.7-10.7); EST GLOMERULAR FILTRATION > 60 (>60 ml/min/1.73m(2))
[2017-01-27] MEDS ORDERED: fentaNYL Inj 100 MCG/2 ML VIAL ONE ×3 (12:14→15:03)
[2017-01-27] MEDS ORDERED: MIDAZOLAM 5 MG/1 ML ONE (12:14)
[2017-01-27] MEDS ORDERED: BUPIVACAINE 0.25% W/ EPI - 10 ML VIAL ONE (12:15)
[2017-01-27] MEDS ORDERED: Lactated Ringers 1,000 ML PRIMARY IV ONE ×2 (12:56→15:50)
[2017-01-27] MEDS ORDERED: DEXAMETHASONE SOD PHOSPHATE 4 MG/1 ML VIAL ONE (13:27)
--- NOTE | 2017-01-27 14:16 | CRNA.PROCE ---
Nerve Block Documentation - - Safety Measures: Time Out Taken, Site Verified - - Type of Nerve Block Used: Left Infraclavicular Block, Right Interscalene Block ( Requests R ISB for post op analgesia. Had with prior shoulder surgery on L) Position for Nerve Block: Supine Moniters Used During Block: EKG, SPO2, NIBP Oxygen Sumpplented: Yes Sedation Used - Enter Amount in Comment Field: Midazolam (mg): Yes (2mg iv), Fentanyl (mcg): Yes (100mcg IV) Technique: Nerve Stimulator Nerve Block Needle Used: 40 mm ProBlk II Stimulation Hz: 1.0 Stimulation Staring mA: 1.0 Stimulation Ending mA: 0.5 Local Anesthetic - Enter Amt in Comment Field: 0.25 % Bupivicaine with Epinephrine 1:200,000 (mL): Yes (35ml)
[2017-01-27] MEDS ORDERED: ONDANSETRON 4 MG/2 ML VIAL ONE (15:22)
[2017-01-27] MEDS ORDERED: NORMAL SALINE 10 ML SYRINGE FLUSH IVP PRN (16:20)
[2017-01-27] MEDS ORDERED: CALCIUM CARBONATE 500 MG (TUMS) CHEWABLE TABLET PO PRN (16:20)
[2017-01-27] MEDS ORDERED: ONDANSETRON 4 MG/2 ML VIAL IVP PRN (16:20)
[2017-01-27] MEDS ORDERED: MORPHINE SULFATE 2 MG/1 ML IVP PRN (16:20)
[2017-01-27] MEDS ORDERED: IBUPROFEN 400 MG TABLET PO PRN (16:20)
[2017-01-27] MEDS ORDERED: BISACODYL 5 MG TABLET PO PRN (16:20)
[2017-01-27] MEDS ORDERED: Ondansetron ODT Tab 8 MG TAB PO PRN (16:20)
[2017-01-27] MEDS ORDERED: HYDROcodone-APAP 7.5 MG-325 MG TABLET PO PRN (16:20)
[2017-01-27] MEDS ORDERED: MAG HYDROX/AL HYDROX/SIMETH 30 ML SUSP PO PRN (16:20)
[2017-01-27] MEDS ORDERED: BISACODYL 10 MG SUPPOSITORY RECTAL PRN (16:20)
[2017-01-27] MEDS ORDERED: ACETAMINOPHEN 325 MG TABLET PO PRN (16:20)
[2017-01-27] MEDS ORDERED: diphenhydrAMINE 25 MG CAPSULE PO PRN (16:20)
[2017-01-27] MEDS ORDERED: Prochlorperazine Tab 10 MG TAB PO PRN (16:20)
[2017-01-27] MEDS ORDERED: Lactated Ringers 1,000 ML PRIMARY IV SCH (16:30)
[2017-01-27 16:49] VITALS: TEMP 97
[2017-01-27] MEDS ORDERED: HYDROcodone-APAP 5 MG -325 MG TABLET PO PRN (17:28)
[2017-01-27] MEDS ORDERED: HYDROcodone-APAP 7.5 MG-325 MG TABLET PO ONE (17:39)
[2017-01-27 18:20] VITALS: RESP 16
--- NOTE | 2017-01-28 09:32 | OPS SHOULD ---
Diagnosis : Right Rotator Cuff Repair/Pako/JOSÉ/Biceps Tenodesis Referral Reason: Instruction in Activities of Daily Living O: The patient was instructed in activities of daily living including dressing and bathing, as well as shoulder do's and don'ts. P: No further therapy is indicated at this time. The patient will begin outpatient physical therapy. KATHE
== END 2017-01-27 18:03 | disposition home or self-care (01) ==
LOC: SDSC 10:26
PROVIDERS: ATTEND Orthopaedic Surgery
DX: S43.431A Superior glenoid labrum lesion of right shoulder, initial encounter (principal); M75.101 Unspecified rotator cuff tear or rupture of right shoulder, not specified as traumatic; M75.21 Bicipital tendinitis, right shoulder; M75.41 Impingement syndrome of right shoulder; M19.011 Primary osteoarthritis, right shoulder; M65.811 Other synovitis and tenosynovitis, right shoulder
CPT/HCPCS: 23430; 29823; 29824; 80048; 87641; 97535; J0171; J0690; J2704; J2795; J3010; J1100; J2250; J2405; J7120